=== PATIENT | female | born 1965 | race Caucasian/White ===

== ENCOUNTER 2017-09-10 10:53 | Outpatient (CLI) | payer BC ==
--- NOTE | 2017-09-10 12:16 | ULT ---
THYROID ULTRASOUND: INDICATIONS: Left neck palpable mass/lump/nodule. FINDINGS: Sonographic imaging of the thyroid gland reveals no evidence of a discrete thyroid lesion. The thyro id isthmus measures 2 mm in thickness. The right thyroid lobe length is demonstrated at approximatel y 4 cm, and the left thyroid lobe just less than 4 cm. There is no discrete thyroid nodule depicted. Incidentally noted, there are normal caliber lymph nodes of the neck bilaterally, demonstrating fat ty [place]. These findings may account for the area of palpable concern. Correlate with physical exami nation and clinical assessment. IMPRESSION: 1. No discrete thyroid lesion. 2. Incidental note of lymph nodes of the neck, which may account for the palpable region of concern, as discussed above. POS: JAY JAY
== END 2017-09-10 10:54 | disposition home or self-care (01) ==
LOC: SCSULT 10:53
PROVIDERS: ATTEND Otolaryngology
DX: E04.1 Nontoxic single thyroid nodule (principal)
CPT/HCPCS: 76536

== ENCOUNTER 2023-02-05 13:42 | Outpatient (CLI) | payer BC | END 2023-02-05 13:43 | disposition home or self-care (01) | LOC: BICRAD 13:42 | PROVIDERS: ATTEND Family Medicine | DX: M25.561 Pain in right knee (principal); M79.672 Pain in left foot ==